=== PATIENT | male | born 1990 | race Caucasian/White ===

== ENCOUNTER 2017-03-24 04:20 | Emergency (ER) | payer OTHER ==
[~2017-03-24] VITALS: Wt 72.6 kg
[~2017-03-24 04:20] MED LIST: MOTRIN 800 MG E4 TAB PO; MOTRIN800 MG PO; PROCTOFOAM 1%10 G1 T
== END 2017-03-24 05:25 | disposition left against medical advice (07) ==
LOC: ED 04:20
DX: S00.81XA Abrasion of other part of head, initial encounter (principal); F10.129 Alcohol abuse with intoxication, unspecified; R40.0 Somnolence; W22.8XXA Striking against or struck by other objects, initial encounter; Y93.89 Activity, other specified; Y92.89 Other specified places as the place of occurrence of the external cause; Y99.9 Unspecified external cause status

== ENCOUNTER 2017-12-12 07:11 | Emergency (ER) | payer SELFPAY ==
[~2017-12-12] VITALS: Wt 72.6 kg
[2017-12-12] MEDS ORDERED: CEPHALEXIN500 M1 PO (08:41)
[2017-12-12] MEDS ORDERED: POLYSPORIN OI28.3 GM T (08:41)
== END 2017-12-12 08:44 | disposition home or self-care (01) ==
LOC: ED 07:11
DX: S61.214A Laceration without foreign body of right ring finger without damage to nail, initial encounter (principal); Z79.899 Other long term (current) drug therapy; W45.8XXA Other foreign body or object entering through skin, initial encounter; Y93.89 Activity, other specified; Y92.89 Other specified places as the place of occurrence of the external cause; Y99.9 Unspecified external cause status

== ENCOUNTER 2021-12-16 03:07 | Emergency (ER) | payer OTHER ==
[~2021-12-16] VITALS: Wt 83.9 kg
[~2021-12-16 03:07] MED LIST changes: +CEPHALEXIN500 M1 PO; +POLYSPORIN OI28.3 GM T
== END 2021-12-16 05:56 | disposition left against medical advice (07) ==
LOC: ED 03:07
DX: S09.90XA Unspecified injury of head, initial encounter (principal); Y08.89XA Assault by other specified means, initial encounter; Y93.89 Activity, other specified; Y92.89 Other specified places as the place of occurrence of the external cause; Y99.8 Other external cause status

== ENCOUNTER 2023-11-22 10:50 | Emergency (ER) | payer MEDICAID ==
[2023-11-22] MEDS ORDERED: SODIUM CHLORIDE 0.9% 1,000 ML IV ONE (11:20)
[2023-11-22] MEDS ORDERED: DIAZEPAM 10 MG/2 ML SYR IV ONE (11:20)
[2023-11-22 11:52] LABS: BASO % 0.3 % (0.0-1.0); EOS % 0.1 % (1.0-4.0); HEMATOCRIT 47.9 % (42.0-52.0); LYMPH # 1.4 10*3/uL (1.3-4.4); LYMPH % 11.7 % (27.0-41.0); MEAN CELL VOLUME 95.2 fl (80.0-94.0); MEAN CORPUSCULAR HGB CONC 33.6 g/dl (33.0-37.0); MEAN PLATELET VOLUME 9.2 fl (9.6-12.3); MONO # 0.8 10*3/uL (0.1-1.0); MONO % 6.9 % (3.0-9.0); NEUT # 9.6 10*3/uL (2.3-7.9); NEUT % 80.7 % (47.0-73.0); PLATELET COUNT AUTOMATED 253 10*3/uL (130-400); RED BLOOD COUNT 5.03 10*6/uL (4.50-5.90); RED CELL DISTRI WIDTH 12.8 % (0-14.5); WHITE BLOOD COUNT 11.9 10*3/uL (4.8-10.8)
[2023-11-22 12:22] LABS: ALKALINE PHOSPHATASE 82 U/L (46-116); BUN 7 mg/dl (9-23); CHLORIDE 102 mmol/L (98-107); ETHYL ALCOHOL 56.5 mg/dl (<3); LIPASE 35 U/L (12-53); POTASSIUM 4.1 mmol/L (3.4-5.1); SGPT/ALT 66 U/L (5-49); TOTAL PROTEIN 8.1 gm/dL (6.0-8.0)
[2023-11-22 14:04] LABS: BILIRUBIN Negative (Negative); BLOOD Negative (Negative); CLARITY Clear (Clear); COLOR Yellow (Yellow); GLUCOSE Negative (Negative); KETONE 1+ (Negative); LEUKO ESTERASE Negative (Negative); NITRITE Negative (Negative); SPECIFIC GRAVITY 1.015 (1.001-1.030); UROBILINOGEN 0.2 E.U./dl (0.0-1.0)
[2023-11-22 14:09] LABS: URINE AMPHETAMINES Negative (1000ng/ml); URINE BARBITURATES Negative (200ng/ml); URINE BENZODIAZEPINES Negative (200ng/ml); URINE CANNABINOIDS (THC) Negative (50ng/ml); URINE COCAINE Positive (300ng/ml); URINE METHADONE Negative (300ng/ml); URINE OPIATES Negative (300ng/ml); URINE PHENCYCLIDINE Negative (25ng/ml)
[2023-11-22 14:17] LABS: MUCOUS 2+; RBC 0-2 rbc/hpf (0-2); WBC 0-2 wbc/hpf (0-5)
== END 2023-11-22 14:18 | disposition home or self-care (01) ==
LOC: ED 10:50
PROVIDERS: Emergency Medicine
DX: R00.0 Tachycardia, unspecified (principal); F14.10 Cocaine abuse, uncomplicated; Z79.899 Other long term (current) drug therapy

== ENCOUNTER 2024-02-22 04:21 | Emergency (ER) | payer MEDICAID ==
[~2024-02-22] VITALS: Ht 167.6 cm; Wt 74.8 kg
[2024-02-22] MEDS ORDERED: Bacitracin Zinc 14 GM TUBE T ONE (04:30)
[2024-02-22] MEDS ORDERED: Tdap Vaccine 0.5 ML SYR (Adult Vaccine) IM ONE (04:30)
[2024-02-22] MEDS ORDERED: Amoxicillin/Clavulanate Pota 875 MG TAB PO ONE (04:30)
[2024-02-22] MEDS ORDERED: AMOX-CLAV 875-1 EACH PO (04:34)
== END 2024-02-22 04:48 | disposition home or self-care (01) ==
LOC: ED 04:21
DX: S01.352A Open bite of left ear, initial encounter (principal); W50.3XXA Accidental bite by another person, initial encounter; Y93.89 Activity, other specified; Y92.009 Unspecified place in unspecified non-institutional (private) residence as the place of occurrence of the external cause; Y99.8 Other external cause status

== ENCOUNTER 2025-05-17 20:49 | Inpatient (IN) | payer MEDICAID ==
[~2025-05-17] VITALS: Ht 172.7 cm; Wt 65.8 kg
[~2025-05-17 20:49] MED LIST changes: +AMOX-CLAV 875-1 EACH PO; +VANCOMYCIN HCL 1,500 MG in SODIUM CHLORIDE 0.9% 500 ML IV ONE
[2025-05-17 20:59] VITALS: BP 124/94
[2025-05-17] MEDS ORDERED: SODIUM CHLORIDE 0.9% 1,000 ML IV SCH (21:20)
[2025-05-17 21:47] LABS: BASO # 0.1 10*3/uL (0.0-0.1); BASO % 0.6 % (0.0-1.0); EOS # 0.1 10*3/uL (0.0-0.4); EOS % 0.9 % (1.0-4.0); MEAN CELL VOLUME 93.7 fl (80.0-94.0); MEAN CORPUSCULAR HGB 32.5 pg (27.0-31.0); MEAN PLATELET VOLUME 9.2 fl (9.6-12.3); MONO # 0.9 10*3/uL (0.1-1.0); MONO % 8.7 % (3.0-9.0); NEUT # 6.2 10*3/uL (2.3-7.9); NEUT % 63.5 % (47.0-73.0); NUCLEATED RED BLOOD CELL 0.0 % (0.0-0.0); NUCLEATED RED BLOOD CELL 0.0 10*3/uL (0.0-0.0); PLATELET COUNT AUTOMATED 307 10*3/uL (130-400); RED CELL DISTRI WIDTH 11.6 % (0-14.5)
[2025-05-17 22:06] LABS: BUN 12 mg/dl (9-23); CPK 817 U/L (34-171)
[2025-05-17] MEDS ORDERED: ACETAMINOPHEN 650 MG SUPP R PRN (23:45)
[2025-05-17] MEDS ORDERED: Ondansetron Hydrochloride 4 MG/2 ML VIAL IV PRN (23:45)
[2025-05-17] MEDS ORDERED: ACETAMINOPHEN 325 MG TAB PO PRN (23:45)
[2025-05-18] VITALS: BP 121/79
[2025-05-18 02:28] LABS: BASO # 0.0 10*3/uL (0.0-0.1); BASO % 0.5 % (0.0-1.0); EOS # 0.2 10*3/uL (0.0-0.4); EOS % 2.0 % (1.0-4.0); MEAN CELL VOLUME 95.2 fl (80.0-94.0); MEAN CORPUSCULAR HGB 32.8 pg (27.0-31.0); MEAN PLATELET VOLUME 9.3 fl (9.6-12.3); MONO # 0.7 10*3/uL (0.1-1.0); MONO % 8.8 % (3.0-9.0); NEUT # 4.4 10*3/uL (2.3-7.9); NEUT % 59.7 % (47.0-73.0); NUCLEATED RED BLOOD CELL 0.0 % (0.0-0.0); NUCLEATED RED BLOOD CELL 0.0 10*3/uL (0.0-0.0); PLATELET COUNT AUTOMATED 215 10*3/uL (130-400); RED CELL DISTRI WIDTH 11.9 % (0-14.5)
[2025-05-18 02:50] LABS: BUN 9 mg/dl (9-23); SGPT/ALT 25 U/L (5-49)
[2025-05-18 02:54] LABS: CPK 601 U/L (34-171)
[2025-05-18] MEDS ORDERED: SODIUM CHLORIDE 0.9% 1,000 ML IV ONE (03:00)
[2025-05-18 06:43] VITALS: BP 115/66
[2025-05-18 08:00] VITALS: BP 116/74
[2025-05-18] MEDS ORDERED: Vancomycin Hydrochloride 1,000 MG in SODIUM CHLORIDE 0.9% 250 ML IV SCH (08:00)
[2025-05-18] MEDS ORDERED: VIBRA-TAB100 MG PO (09:30)
== END 2025-05-18 10:07 | disposition home or self-care (01) | DRG 383 ==
LOC: ED 20:49 → EDHOLD 22:45
PROVIDERS: Nurse Practitioner Family; ADMIT Student in an Organized Health Care Education/Training Program; ATTEND Student in an Organized Health Care Education/Training Program
DX: L03.115 Cellulitis of right lower limb (principal); M62.82 Rhabdomyolysis; E87.20 Acidosis, unspecified; R79.82 Elevated C-reactive protein (CRP); F19.10 Other psychoactive substance abuse, uncomplicated; F17.200 Nicotine dependence, unspecified, uncomplicated